=== PATIENT | female | born 1990 | race American Indian/Alaskan Native ===

== ENCOUNTER 2019-04-24 11:57 | Emergency (ER) | payer SELFPAY ==
[2019-04-24 12:41] LABS: Bilirubin,Urine NEG (Negative); Blood,Urine NEG (Negative); Color,Urine Yellow (Yellow); Mucus,Urine FEW /HPF; Protein,Urine <15 mg/dL mg/dL (Negative); Urobilinogen,Urine < 2.0 mg/dL (<2.0)
[2019-04-24 12:45] LABS: HCG Qualitative,Urine Negative (Negative)
[2019-04-24 12:48] LABS: Amphetamine Screen,Urine PRESUMPTIVE NEGATIVE; Benzodiazepines Screen,Urine PRESUMPTIVE NEGATIVE; Cocaine Screen,Urine PRESUMPTIVE NEGATIVE; Methadone Screen,Urine PRESUMPTIVE NEGATIVE; Opiate Screen,Urine PRESUMPTIVE NEGATIVE
--- NOTE | 2019-04-24 12:54 | Emergency Department Report ---
ED Psych HPI - General Chief Complaint: Psych Stated Complaint: AGGRESIVE THOUGHTS/WEIGHT LOSS Time Seen by Provider: 04/24/19 12:37 Source: patient, family Mode of arrival: Ambulatory - History of Present Illness Initial Comments: 29-year-old female with past history of bipolar disorder presents to ED with onset of hallucinations, anxiety, paranoia for last 2 days. Patient states she used to take lithium, risperdal, clonazepam, but has been off of these medications since the age of 20. The patient states over the last 2 days he has been very anxious and paranoid. States when these episodes occur she begins to have aggressive thoughts. Patient states her danita was trying to help her through one of these episodes on yesterday, and she experienced auditory hallucinations telling her that he was trying to kill her. Denies suicidal ideation. Reports homicidal ideation "during the episodes." Patient reports marijuana use. Patient denies any recent events that may have triggered this. Patient states she works from home doing [employer] and also works for [employer]. She reports 5 lb weight loss over the last week due to not eating. -: days(s) (2) Associated Psychiatric Symptoms: homicidal ideation, racing thoughts, auditory hallucinations History of same: Yes Quality: constant Improves With: none Worsens With: none Associated Symptoms: headache Treatments Prior to Arrival: none - Related Data Allergies Allergy/AdvReac Type Severity Reaction Status Date / Time No Known Allergies Allergy Unverified 04/24/19 12:06 ED Review of Systems ROS: Stated complaint: AGGRESIVE THOUGHTS/WEIGHT LOSS Other details as noted in HPI Comment: All other systems reviewed and negative Constitutional: denies: chills, fever Neurological: headache Psychiatric: anxiety, auditory hallucinations, homicidal thoughts. denies: depression, visual hallucinations, suicidal thoughts ED Past Medical Hx - Past Medical History Previous Medical History?: No - Surgical History Past Surgical History?: Yes Additional Surgical History: Right arm - Social History Smoking Status: Never Smoker Substance Use Type: None ED Physical Exam - General Limitations: No Limitations General appearance: alert, in no apparent distress - Head Head exam: Present: atraumatic, normocephalic - Eye Eye exam: Present: normal appearance, PERRL, EOMI - ENT ENT exam: Present: mucous membranes moist - Neck Neck exam: Present: normal inspection - Respiratory Respiratory exam: Present: normal lung sounds bilaterally. Absent: respiratory distress - Cardiovascular Cardiovascular Exam: Present: regular rate, normal rhythm - GI/Abdominal GI/Abdominal exam: Present: soft. Absent: distended, tenderness - Extremities Exam Extremities exam: Present: normal inspection - Neurological Exam Neurological exam: Present: alert, oriented X3, CN II-XII intact. Absent: motor sensory deficit - Psychiatric Psychiatric exam: Present: anxious, other (sad, tearful) - Skin Skin exam: Present: warm, dry, intact, normal color ED Course Vital Signs 04/24/19 04/24/19 04/24/19 12:06 12:36 12:45 Temperature 98.8 F Pulse Rate 94 H Respiratory 20 Rate Blood Pressure 144/82 117/82 Blood Pressure [Left] O2 Sat by Pulse 99 98 97 Oximetry 04/24/19 04/24/19 04/24/19 15:13 16:13 16:20 Temperature 98.6 F Pulse Rate 70 68 Respiratory 16 16 Rate Blood Pressure Blood Pressure 93/66 92/56 [Left] O2 Sat by Pulse 98 Oximetry ED Medical Decision Making - Lab Data Result diagrams: 04/24/19 13:56 04/24/19 13:56 - Radiology Data Radiology results: report reviewed, image reviewed - Medical Decision Making 29 yo F, hx bipolar d/o presents w/ auditory hallucinations, aggressive behavior and thoughts, anxiety, paranoia for 2 days. Not currently on any psychiatric meds. Pt placed on a 1013. Labs unremarkable. CT Head normal. Pt is medically clear for mental health evaluation. Will dispo per psych. - Differential Diagnosis psychosis Critical care attestation.: If time is entered above; I have spent that time in minutes in the direct care of this critically ill patient, excluding procedure time. ED Disposition Clinical Impression: Psychosis Disposition: [id number]/TX-65 PSY HOSP/PSY UNIT Is pt being admited?: No Condition: Stable
[2019-04-24] MEDS ORDERED: TYLENOL PO ONE (12:57)
[2019-04-24 13:00] LABS: Cannabinoid Screen,Urine PRESUMPTIVE POSITIVE
[2019-04-24] MEDS ORDERED: ATIVAN IM ONE (13:25)
[2019-04-24 14:42] LABS: Hematocrit 37.8 % (30.3-42.9); Hemoglobin 12.9 gm/dl (10.1-14.3); Mean Corpuscular HGB Conc 34 % (30-34); Mean Corpuscular Volume 90 fl (79-97); Platelet Count 202 K/mm3 (140-440); Red Blood Count 4.18 M/mm3 (3.65-5.03)
[2019-04-24 15:01] LABS: BUN/Creatinine Ratio 15; Blood Urea Nitrogen 9 mg/dL (7-17); Calcium 9.1 mg/dL (8.4-10.2); Hemolysis Index 5
[2019-04-24 15:55] LABS: Basophils % (Manual) 0 % (0.0-1.8); Total Cells Counted 100
[2019-04-24 15:56] LABS: Anisocytosis Few; Ovalocytes 1+; Platelet Estimate Consistent w Auto; Poikilocytosis Few
--- NOTE | 2019-04-24 15:57 | Cat Scan Report ---
CT BRAIN: 04/24/2019 INDICATION / CLINICAL INFORMATION: MAIN: headache PT SEEMS ALTERED PT IS ALSO 1013. COMPARISON: None available. FINDINGS: BRAIN/INTRACRANIAL STRUCTURES: Unenhanced CT images of the brain demonstrate no evidence of acute int racranial abnormality. Ventricles and sulci are normal in size and shape. There is no evidence of hemorrhage or mass. There are no abnormal extra-axial fluid collections. EXTRACRANIAL STRUCTURES: Unremarkable. IMPRESSION: Negative unenhanced CT of the brain. All CT scans at this location are performed using dose reduction to ALARA by means of automated expos ure control. Signer Name: Peterson Petersen MD Signed: 04/24/2019 3:53 PM Workstation Name: [id number]
--- NOTE | 2019-04-25 08:40 | Consultation ---
History of Present Illness - Reason for Consult Consult date: 04/25/19 Reason for consult: Mental Health Evaluation Requesting physician: DERIAN IGLESIAS - Chief Complaint Chief complaint: "Something isn't right" - History of Present Psychiatric Illness 29-year-old AA female who presented the with AH's and racing thoughts. Today the patient was clam during the assessment. She stated that she is having "weird thoughts" the past few days. She could not described her thought when asked. She stated that she haven't been sleeping because she feel like something is wrong. She stated that she had her boyfriend check her "glucose level just because." She denies having diabetes. She stated that her appetite his poor. She stated that she has some thoughts of harming her kids, but stated, 'I know that's not right." She stated that she is hearing voices. She denies SI/HI's and VH's. She denies alcohol consumption (etoh), but admitted to marijuana use often. Medications and Allergies Allergies Allergy/AdvReac Type Severity Reaction Status Date / Time No Known Allergies Allergy Verified 04/25/19 08:49 Past psychiatric history - Past Medical History Past Medical History: other ( x 7) Past Surgical History: - past Psychiatric treatment and history psychiatric treatment history: Hx of mental health. Denies a fam psy hx. - Social History Social history: lives with family Mental Status Exam - Vital signs Last Vital Signs Temp 98.8 F 04/25/19 07:47 Pulse 76 04/25/19 07:47 Resp 16 04/25/19 07:47 BP 98/62 04/25/19 07:47 Pulse Ox 100 04/25/19 07:47 - Exam Narrative exam: MSE: Appearance: calm Behavior: poor eye contact Speech: regular rate and tone Mood: "tired" Affect: flat Thought Process: disorganized Thought Content: denies SI/HI's and VH's, intermittent AH's, paranoia Motor Activity: ambulatory Cognition: A/O x3 Insight: poor Judgment: variable Results Result Diagrams: 04/24/19 13:56 04/24/19 13:56 Abnormal lab results 04/24/19 04/24/19 04/24/19 Range/Units 12:21 13:56 13:56 RDW (13.2-15.2) % Seg Neuts % (Manual) (40.0-70.0) % Lymphocytes % (Manual) (13.4-35.0) % Monocytes % (Manual) (0.0-7.3) % Seg Neutrophils # Man (1.8-7.7) K/mm3 Creatinine (0.7-1.2) mg/dL Urine pH 8.0 H (5.0-7.0) Salicylates < 0.3 L (2.8-20.0) mg/dL Acetaminophen < 5.0 L (10.0-30.0) ug/mL 04/24/19 04/24/19 Range/Units 13:56 13:56 RDW 13.0 L (13.2-15.2) % Seg Neuts % (Manual) 36.0 L (40.0-70.0) % Lymphocytes % (Manual) 51.0 H (13.4-35.0) % Monocytes % (Manual) 10.0 H (0.0-7.3) % Seg Neutrophils # Man 1.7 L (1.8-7.7) K/mm3 Creatinine 0.6 L (0.7-1.2) mg/dL Urine pH (5.0-7.0) Salicylates (2.8-20.0) mg/dL Acetaminophen (10.0-30.0) ug/mL All other labs normal. Assessment and Plan Assessment and plan: Impression: Unspecified Mood DO with psy features. Insomnia. Cannabis Use DO. Today the patient was calm during the assessment. DDx; Bipolar Do, MDD, Substance Induced Psychosis Recommendation/Plan: Continue 1013 and start Zyprexa Zydis ODT 5 mg PO HS mood/psychosis and Melatonin 5 mg PO HS for sleep. Discussed possible metabolic side effects of Zyprexa Zydis, with the patient, she verbalized understanding. Dispo: The patient was referred to inpatient psy services. Will staff with Dr. Angelica Easton.
[2019-04-25] MEDS ORDERED: TYLENOL PO ONE (12:24)
[2019-04-25] MEDS: MELATONIN PO SCH (22:12)
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
[2019-04-26] MEDS ORDERED: ATIVAN IM ONE (20:25)
[2019-04-26] MEDS ORDERED: TYLENOL PO ONE (20:26)
[2019-04-26] MEDS: MELATONIN PO SCH (22:07)
--- NOTE | 2019-04-27 13:24 | Progress Note ---
Subjective - Reason for Consult Consult date: 04/27/19 Reason for consult: Psychiatric Follow-up Evaluation - Chief Complaint Chief complaint: "I'm good" Patient is a 29-year-old female who presented to the emergency room with auditory hallucinations, racing thoughts, and anxiety. Today the patient is cooperative but anxious during the assessment. She presents less anxious. She reports improvement with sleep and appetite. She denies SI/HI's, A/VH's and delusions. She reports medication compliance. No side effects noted/reported. Currently, there is a pending [facility] case. Patient states that she is aware. She was informed that [facility] was notified because of the statement about wanting to hurt her kids yesterday. Mental Status Exam - Vital signs Last Vital Signs Temp 98.4 F 04/27/19 10:01 Pulse 87 04/27/19 10:01 Resp 20 04/27/19 10:01 BP 121/88 04/27/19 10:01 Pulse Ox 99 04/27/19 10:01 - Exam Narrative exam: Mental Status Exam: Appearance: anxious, cooperative Behavior: poor eye contact Speech: regular rate and tone Mood: "ready to go home"; anxious, depressed, tearful Affect: congruent to mood Thought Process: circumstantial Thought Content: denies SI/HI's, AVH's, and delusions Motor Activity: ambulatory Cognition: A/O x 3 Insight: fair Judgment: variable to fair Assessment and Plan Impression: Unspecified Mood DO with psy features. Insomnia. Cannabis Use DO. Today the patient is cooperative but anxious during the assessment. At times patient is tearful throughout the assessment. She denies SI/HI's, A/VH's, and delusions. DDx: Bipolar Do, MDD, Substance Induced Psychosis Recommendation/Plan: 1. Continue 1013. Will reevaluate 1013 in 24 hours. 2. Increase Zyprexa Zydis ODT 10 mg PO HS mood/psychosis and Melatonin 5 mg PO HS for sleep. Discussed possible metabolic side effects of Zyprexa Zydis, with the patient, she verbalized understanding. Disposition: The patient was referred to inpatient psychiatric services. Will staff with Dr. Angelica Easton.
[2019-04-27] MEDS: MELATONIN PO SCH (22:05)
[2019-04-28 11:02] VITALS: BP 114/77
--- NOTE | 2019-04-28 13:24 | Progress Note ---
Subjective - Reason for Consult Consult date: 04/28/19 Reason for consult: Psychiatry Follow-up - Chief Complaint Chief complaint: "Bogdan" Patient is a 29-year-old female who presented to the emergency room with auditory hallucinations, racing thoughts, and anxiety. Today the patient was calm during the assessment. She was explained to she was accepted at [facility], she became emotional. The patient was explained the process once tr ansferred, she stated, 'I'm okay now." She denies SI/HI's and AVH's. She denies any side effects of her medication. Mental Status Exam - Vital signs Last Vital Signs Temp 98 F 04/28/19 11:00 Pulse 71 04/28/19 11:00 Resp 18 04/28/19 11:00 BP 114/77 04/28/19 11:00 Pulse Ox 100 04/28/19 11:00 - Exam Narrative exam: MSE: Appearance: calm Behavior: poor eye contact Speech: regular rate and tone Mood: "okay" Affect: congruent to mood Thought Process: circumstantial Thought Content: denies SI/HI's and AVH's Motor Activity: ambulatory Cognition: A/O x3 Insight: fair Judgment: variable to fair Assessment and Plan Impression: Unspecified Mood DO with psy features. Insomnia. Cannabis Use DO. Today the patient was calm during the assessment. DDx; Bipolar Do, MDD, Substance Induced Psychosis Recommendation/Plan: Continue 1013, Zyprexa Zydis ODT 10 mg PO HS mood/psychosis, and Melatonin 5 mg PO HS for sleep. Discussed possible metabolic side effects of Zyprexa Zydis, with the patient, she verbalized understanding. Dispo: The patient was accepted at [facility] for inpatient psy services. Will staff with Dr. Angelica Easton.
== END 2019-04-28 12:51 ==
LOC: ED 11:57 → EEVIPCON 11:57 → ED 04-28 12:51
DX: F31.9 Bipolar disorder, unspecified (principal); F41.9 Anxiety disorder, unspecified; F12.90 Cannabis use, unspecified, uncomplicated
CPT/HCPCS: 36415; 70450; 80048; 80307; 81001; 81025; 84703; 85007; 85025; 96372; 99285; J2060; 80320; G0480

== ENCOUNTER 2021-01-07 20:23 | Emergency (ER) | payer SELFPAY ==
--- NOTE | 2021-01-07 23:22 | Emergency Department Report ---
ED Female HPI - General Chief complaint: Urogenital-Female Stated complaint: VAGINAL ISSUES Time Seen by Provider: 01/07/21 23:17 Source: patient Mode of arrival: Ambulatory Limitations: No Limitations - History of Present Illness Initial comments: 30-year-old female presents to the ER today with complaints of possible retained tampon. Patient states that last night during sexual intercourse with her boyfriend she started with severe pelvic pain especially on the left side. She states that she noticed that after having sexual intercourse she started with some light bleeding. She states that she had to use one pad and she states that it was full. She denies any bleeding today. She states that her pelvic pain has improved today. She states that she assumed that her pain and bleeding was r related to a retained tampon which she had noted last week during her period. Patient also reports yellow vaginal discharge this morning with a mild odor. She denies any UTI symptoms. She states that her last menstrual cycle was December 25, 2020. She denies any fever or chills. She denies any nausea, vomiting or any other symptoms at this time. MD Complaint: vaginal discharge, pelvic pain, other (Possible retained Tampon) -: Sudden, Last night - Related Data Previous Rx's Medication Instructions Recorded Last Taken Type DOXYCYCLINE Hyclate [Vibramycin 100 mg PO Q12HR #14 capsule 01/08/21 Unknown Rx CAP] Fluconazole [Diflucan TAB] 200 mg PO QDAY #2 tablet 01/08/21 Unknown Rx Ibuprofen [Motrin] 600 mg PO Q8H PRN #30 tablet 01/08/21 Unknown Rx Ondansetron [Zofran Odt] 4 mg PO Q8HR PRN #12 tab.rapdis 01/08/21 Unknown Rx metroNIDAZOLE [Flagyl] 500 mg PO Q12HR #14 tab 01/08/21 Unknown Rx Allergies Allergy/AdvReac Type Severity Reaction Status Date / Time No Known Allergies Allergy Verified 04/25/19 08:49 ED Review of Systems ROS: Stated complaint: VAGINAL ISSUES Other details as noted in HPI Comment: All other systems reviewed and negative Constitutional: denies: chills, fever Eyes: denies: eye pain, eye discharge, vision change ENT: denies: ear pain, throat pain Respiratory: denies: cough, shortness of breath, wheezing Cardiovascular: denies: chest pain, palpitations Gastrointestinal: abdominal pain. denies: nausea, vomiting, diarrhea, constipation, hematemesis, melena, hematochezia Genitourinary: discharge, dyspareunia, other (Abnormal vaginal bleeding). denies: urgency, dysuria, frequency, hematuria, abnormal menses Musculoskeletal: denies: back pain, joint swelling, arthralgia Skin: denies: rash, lesions Neurological: denies: headache, weakness, paresthesias Psychiatric: denies: anxiety, depression Hematological/Lymphatic: as per HPI ED Past Medical Hx - Past Medical History Previous Medical History?: No - Surgical History Past Surgical History?: No Additional Surgical History: Right arm - Social History Smoking Status: Never Smoker Substance Use Type: None - Medications Home Medications: Home Medications Medication Instructions Recorded Confirmed Last Taken Type DOXYCYCLINE Hyclate [Vibramycin 100 mg PO Q12HR #14 capsule 01/08/21 Unknown Rx CAP] Fluconazole [Diflucan TAB] 200 mg PO QDAY #2 tablet 01/08/21 Unknown Rx Ibuprofen [Motrin] 600 mg PO Q8H PRN #30 tablet 01/08/21 Unknown Rx Ondansetron [Zofran Odt] 4 mg PO Q8HR PRN #12 tab.rapdis 01/08/21 Unknown Rx metroNIDAZOLE [Flagyl] 500 mg PO Q12HR #14 tab 01/08/21 Unknown Rx ED Physical Exam - General Limitations: No Limitations General appearance: alert, in no apparent distress - Head Head exam: Present: atraumatic, normocephalic, normal inspection - Eye Eye exam: Present: normal appearance, PERRL, EOMI Pupils: Present: normal accommodation - Neck Neck exam: Present: normal inspection, full ROM - Respiratory Respiratory exam: Absent: respiratory distress - Cardiovascular Cardiovascular Exam: Present: regular rate, normal rhythm, normal heart sounds - GI/Abdominal GI/Abdominal exam: Present: soft, tenderness (Mild tenderness to the suprapubic and left lower quadrant area). Absent: distended, guarding, rebound - External exam: Present: normal external exam Speculum exam: Present: vaginal discharge (Small amount of yellow thin dischar ge), other (Cervix noted to be mildly friable). Absent: vaginal bleeding, foreign body Bi-manual exam: Present: cervical motion tendernes (Mild), adnexal tenderness (/moderate left). Absent: adnexal mass - Neurological Exam Neurological exam: Present: alert, oriented X3, CN II-XII intact, normal gait - Psychiatric Psychiatric exam: Present: normal affect, normal mood - Skin Skin exam: Present: intact ED Course Vital Signs 01/07/21 01/08/21 21:26 03:43 Temperature 98.6 F Pulse Rate 79 73 Respiratory 18 16 Rate Blood Pressure 122/93 O2 Sat by Pulse 100 98 Oximetry ED Medical Decision Making - Radiology Data Radiology results: report reviewed - Medical Decision Making 30-year-old female presents to the ER today with complaints of possible retained tampon. Patient states that last night during sexual intercourse with her boyfriend she started with severe pelvic pain especially on the left side. She states that she noticed that after having sexual intercourse she started with some light bleeding. She states that she had to use one pad and she states that it was full. She denies any bleeding today. She states that her pelvic pain has improved today. She states that she assumed that her pain and bleeding was r related to a retained tampon which she had noted last week during her period. Patient also reports yellow vaginal discharge this morning with a mild odor. She denies any UTI symptoms. She states that her last menstrual cycle was December 25, 2020. She denies any fever or chills. She denies any nausea, vomiting or any other symptoms at this time. 0213: pelvic exam show not retained FB. Patient did have yellow vag d/c with mild friable cervix/mild CMT and left adnexal ttp. Will be treated for possible cervicitis/pelvic infection. UA also concerning for UTI. Patient is not toxic or ill appearing and is not in any distress. She is neurologically intact with nl gait. She is afebrile and remaining VS stable. Patient given 1 g of IM Rocephin here in the ER. She also be discharged home on doxycycline which will cover for possible chlamydia and also for UTI. Urine culture is pending. And she will be treated with Flagyl for her bacterial vaginosis. At this time there is no further indication for any additional lab testing, or imaging. Discussed results, suspected diagnoses and treatment plan with patient. Recommend follow-up with [facility]. Patient expressed understanding of instructions and agree with plan. Patient stable at time of discharge. Critical care attestation.: If time is entered above; I have spent that time in minutes in the direct care of this critically ill patient, excluding procedure time. ED Disposition Clinical Impression: Cervicitis, Bacterial vaginosis, Pelvic pain, UTI (urinary tract infection) Disposition: TO HOME OR SELFCARE Is pt being admited?: No Does the pt Need Aspirin: No Condition: Stable Instructions: Pelvic Pain, Female, [id number], Bacterial Vaginosis, Urinary Tract Infection, Adult, Cervicitis, [id number], Bacterial Vaginosis (ED), Cervicitis (ED) Additional Instructions: Take the doxycycline and falgyl as prescribed.Take the zofran to help with nausea. Take the motrin as prescribed. I recommend no sexual contact for 7 days. Your partner may need to be tested and treated as well. Follow up with the OBGYN listed on d/c instructions. Return to ED if worse. Prescriptions: Fluconazole [Diflucan TAB] 200 mg PO QDAY #2 tablet metroNIDAZOLE [Flagyl] 500 mg PO Q12HR #14 tab Ibuprofen [Motrin] 600 mg PO Q8H PRN #30 tablet PRN Reason: Pain DOXYCYCLINE Hyclate [Vibramycin CAP] 100 mg PO Q12HR #14 capsule Ondansetron [Zofran Odt] 4 mg PO Q8HR PRN #12 tab.rapdis PRN Reason: Nausea Referrals: [facility] [Provider Group] - 3-5 Days Forms: STI Treatment and Prevention Time of Disposition: 01:44
[2021-01-07 23:28] VITALS: BP 122/93
[2021-01-08] MEDS ORDERED: LIDOCAINE-MPF (1%) 10 MG/1 ML VIAL 5 ML INFILTRATI ONE ×2 (00:21→02:25)
[2021-01-08 02:13] LABS: Bilirubin,Urine NEG (Negative); Blood,Urine NEG (Negative); Color,Urine Yellow (Yellow); Mucus,Urine 3+ /HPF
[2021-01-08 02:17] LABS: HCG Qualitative,Urine Negative (Negative)
== END 2021-01-08 03:43 | disposition home or self-care (01) ==
LOC: ED 20:23
DX: N76.0 Acute vaginitis (principal); B96.89 Other specified bacterial agents as the cause of diseases classified elsewhere; N72 Inflammatory disease of cervix uteri; R10.2 Pelvic and perineal pain; N39.0 Urinary tract infection, site not specified; Z79.899 Other long term (current) drug therapy; Z98.890 Other specified postprocedural states
CPT/HCPCS: 81001; 81025; 87086; 87210; 87591; 96372; 99284; J0696

== ENCOUNTER 2021-09-29 19:03 | Emergency (ER) | payer SELFPAY ==
[2021-09-29 20:30] VITALS: BP 126/91
[2021-09-29] MEDS ORDERED: ACETAMINOPHEN 500 MG TAB PO ONE (22:02)
--- NOTE | 2021-09-29 22:08 | Emergency Department Report ---
ED HPI - General Chief complaint: Vaginal Bleeding Stated complaint: POSS MISSCARRIAGE Time Seen by Provider: 09/29/21 21:53 Source: patient Mode of arrival: Ambulatory Limitations: No Limitations - History of Present Illness Initial comments: Patient is a 31-year-old female here with complaint of back pain, vaginal bleeding or hematuria. Patient reports symptoms have been present for 1 day. She noted earlier today that she had pinkish blood in her underwear. She states there would have been enough to be on a panty liner. She now notes that she has a bit more bleeding with bright red. Would possibly fill out a normal Pap. She denies any lower abdominal pain but states it feels that IcyHot is in her lower abdomen or vagina as well as pressure. She denies any cramping. She notes 7 previous normal pregnancies with no abortions or spontaneous miscarriages. Her LMP is July 31 of this year. She has not yet had an ultrasound of this . - Related Data Previous Rx's Medication Instructions Recorded Last Taken Type DOXYCYCLINE Hyclate [Vibramycin 100 mg PO Q12HR #14 capsule 01/08/21 Unknown Rx CAP] Fluconazole [Diflucan TAB] 200 mg PO QDAY #2 tablet 01/08/21 Unknown Rx Ibuprofen [Motrin] 600 mg PO Q8H PRN #30 tablet 01/08/21 Unknown Rx Ondansetron [Zofran Odt] 4 mg PO Q8HR PRN #12 tab.rapdis 01/08/21 Unknown Rx metroNIDAZOLE [Flagyl] 500 mg PO Q12HR #14 tab 01/08/21 Unknown Rx Nitrofurantoin Macrocrystal 100 mg PO BID 5 Days #10 capsule 09/30/21 Unknown Rx [Nitrofurantoin] Allergies Allergy/AdvReac Type Severity Reaction Status Date / Time No Known Allergies Allergy Verified 04/25/19 08:49 ED Review of Systems ROS: Stated complaint: POSS MISSCARRIAGE Other details as noted in HPI Constitutional: denies: chills, fever Eyes: denies: eye pain, eye discharge, vision change ENT: denies: ear pain, throat pain Respiratory: denies: cough, shortness of breath, wheezing Cardiovascular: denies: chest pain, palpitations Endocrine: no symptoms reported Gastrointestinal: denies: abdominal pain, nausea, diarrhea Genitourinary: hematuria, other (vaginal bleeding in ). denies: urgency, dysuria Musculoskeletal: back pain. denies: joint swelling, arthralgia Skin: denies: rash, lesions Neurological: headache. denies: weakness, paresthesias Psychiatric: denies: anxiety, depression Hematological/Lymphatic: denies: easy bleeding, easy bruising ED Past Medical Hx - Past Medical History Previous Medical History?: No - Surgical History Past Surgical History?: No Additional Surgical History: Right arm - Social History Smoking Status: Never Smoker Substance Use Type: None - Medications Home Medications: Home Medications Medication Instructions Recorded Confirmed Last Taken Type DOXYCYCLINE Hyclate [Vibramycin 100 mg PO Q12HR #14 capsule 01/08/21 Unknown Rx CAP] Fluconazole [Diflucan TAB] 200 mg PO QDAY #2 tablet 01/08/21 Unknown Rx Ibuprofen [Motrin] 600 mg PO Q8H PRN #30 tablet 01/08/21 Unknown Rx Ondansetron [Zofran Odt] 4 mg PO Q8HR PRN #12 tab.rapdis 01/08/21 Unknown Rx metroNIDAZOLE [Flagyl] 500 mg PO Q12HR #14 tab 01/08/21 Unknown Rx Nitrofurantoin Macrocrystal 100 mg PO BID 5 Days #10 capsule 09/30/21 Unknown Rx [Nitrofurantoin] ED Physical Exam - General Limitations: No Limitations General appearance: alert, in no apparent distress - Head Head exam: Present: atraumatic, normocephalic - Eye Eye exam: Present: normal appearance - ENT ENT exam: Present: mucous membranes moist - Neck Neck exam: Present: normal inspection - Respiratory Respiratory exam: Present: normal lung sounds bilaterally. Absent: respiratory distress - Cardiovascular Cardiovascular Exam: Present: regular rate, normal rhythm. Absent: systolic murmur, diastolic murmur, rubs, gallop - GI/Abdominal GI/Abdominal exam: Present: soft. Absent: tenderness - Rectal Rectal exam: Present: deferred - Extremities Exam Extremities exam: Present: normal inspection - Back Exam Back exam: Present: normal inspection - Neurological Exam Neurological exam: Present: alert, oriented X3 - Psychiatric Psychiatric exam: Present: normal affect, normal mood - Skin Skin exam: Present: warm, dry, intact, normal color. Absent: rash ED Course Vital Signs 09/29/21 09/29/21 09/29/21 20:26 20:29 20:30 Temperature 97.7 F Pulse Rate 80 Respiratory 17 Rate Blood Pressure 126/91 O2 Sat by Pulse 100 Oximetry - Reevaluation(s) Reevaluation #1: 09/30/21 01:02 Labs are grossly normal. Urinalysis does show evidence of infection. Patient is Rh+ and does not require RhoGam. I have prescribed patient's Macrobid, she is to follow-up with OB for her subchorionic hemorrhage. ED Medical Decision Making - Lab Data Result diagrams: 09/29/21 22:01 09/29/21 22:01 - Medical Decision Making Patient is a 31-year-old female with history of 1 day of vaginal bleeding or hematuria. She is concerned she could have a UTI or that she could be having a miscarriage. Plan to evaluate for toxic versus intrauterine or early with ultrasound quant and Rh status. Will give Tylenol for patient symptoms and also obtain urinalysis and urine culture to evaluate for any urinary tract infection. Critical care attestation.: If time is entered above; I have spent that time in minutes in the direct care of this critically ill patient, excluding procedure time. ED Disposition Clinical Impression: Subchorionic hematoma in first trimester, Threatened miscarriage, UTI (urinary tract infection) Disposition: 01 HOME / SELF CARE / HOMELESS Is pt being admited?: No Does the pt Need Aspirin: No Condition: Stable Instructions: Vaginal Bleeding During , First Trimester, Urinary Tract Infection, Adult, Threatened Miscarriage, [id number], Subchorionic Hematoma Prescriptions: Nitrofurantoin Macrocrystal [Nitrofurantoin] 100 mg PO BID 5 Days #10 capsule Referrals: PRIMARY CARE, [Primary Care Provider] - 3-5 Days [facility] [Provider Group] - 3-5 Days
[2021-09-29 22:11] LABS: Basophils % (Auto) 0.5 % (0.0-1.8); Eosinophils # (Auto) 0.2 K/mm3 (0.0-0.4); Eosinophils % (Auto) 3.4 % (0.0-4.3); Hematocrit 38.1 % (30.3-42.9); Hemoglobin 12.6 gm/dl (10.1-14.3); Lymphocytes # (Auto) 3.2 K/mm3 (1.2-5.4); Lymphocytes % (Auto) 47.3 % (13.4-35.0); Mean Corpuscular HGB Conc 33 % (30-34); Mean Corpuscular Volume 93 fl (79-97); Monocytes # (Auto) 0.7 K/mm3 (0.0-0.8); Monocytes % (Auto) 10.6 % (0.0-7.3); Platelet Count 195 K/mm3 (140-440); Red Blood Count 4.11 M/mm3 (3.65-5.03); Red Cell Distribution Width 12.7 % (13.2-15.2)
[2021-09-29 22:26] LABS: Blood Urea Nitrogen 8 mg/dL (7-17); Calcium 9.3 mg/dL (8.4-10.2); Hemolysis Index 67
[2021-09-29 22:30] LABS: BUN/Creatinine Ratio 16
[2021-09-29 23:58] LABS: Bacteria,Urine 2+ /HPF (Negative); Bilirubin,Urine NEG (Negative); Blood,Urine NEG (Negative); Color,Urine Yellow (Yellow); Mucus,Urine 2+ /HPF; Protein,Urine <15 mg/dL mg/dL (Negative)
--- NOTE | 2021-09-30 00:30 | Ultrasound Report ---
ULTRASOUND OBSTETRIC INDICATION: Vaginal bleeding. Estimated clinical age of 8 weeks, 4 days. TECHNIQUE: Transabdominal. COMPARISON: None available. FINDINGS: GESTATIONAL SAC: Well-defined oval shape and intrauterine in location. YOLK SAC: No significant abnormality. EMBRYO/FETUS: No significant abnormality. - [place]-Rump Length = 4.8 cm = 6 weeks, 1 day(s). - Heart Rate = 122 beats per minute. There is an area of subchorionic hemorrhage measuring 2.5 x 1.7 x 3.7 cm. ADNEXA: No significant abnormality. FREE FLUID: None. ADDITIONAL FINDINGS: None. IMPRESSION: 1. Single, living intrauterine with estimated sonographic age of 6 weeks, 1 day(s). 2. Area of subchorionic hemorrhage measuring 2.5 x 1.7 x 3.7 cm. Signer Name: Michael Butler MD Signed: 09/30/2021 12:25 AM Workstation Name: [id number]
== END 2021-09-30 01:30 | disposition home or self-care (01) ==
LOC: ED 19:03
DX: O20.0 Threatened abortion (principal); O20.8 Other hemorrhage in early pregnancy; O23.41 Unspecified infection of urinary tract in pregnancy, first trimester; N39.0 Urinary tract infection, site not specified; Z3A.08 8 weeks gestation of pregnancy; Z79.899 Other long term (current) drug therapy
CPT/HCPCS: 36415; 76801; 80048; 81001; 84702; 85025; 86900; 86901; 87076; 87086; 87186; 99284